=== PATIENT | female | born 1995 | race Caucasian/White ===

== ENCOUNTER 2024-05-20 08:17 | Outpatient (CLI) | payer OTHER, SELFPAY | END 2024-05-20 08:18 | disposition home or self-care (01) | LOC: NFLDREF 05-21 18:54 | PROVIDERS: PCP Physician Assistant Medical; Referring Provider Physician Assistant Medical; Visit Provider Physician Assistant Medical | DX: E03.9 Hypothyroidism, unspecified (principal); Z13.220 Encounter for screening for lipoid disorders; Z13.1 Encounter for screening for diabetes mellitus | CPT/HCPCS: 80061; 82947; 84439; 84443 ==

== ENCOUNTER 2024-08-26 09:15 | Outpatient (CLI) | payer OTHER, SELFPAY | END 2024-08-26 09:16 | disposition home or self-care (01) | LOC: NFLDREF 08-28 12:09 | PROVIDERS: PCP Physician Assistant Medical; Referring Provider Physician Assistant Medical; Visit Provider Physician Assistant Medical | DX: E03.9 Hypothyroidism, unspecified (principal) | CPT/HCPCS: 84443 ==